=== PATIENT | male | born 1955 | race African-American/Black ===

== ENCOUNTER 2019-03-26 19:59 | Emergency (ER) | payer OTHER ==
[~2019-03-26] VITALS: Ht 170.2 cm; Wt 81.6 kg
[2019-03-26] MEDS ORDERED: Ketorolac 30mg Inj IM ONE (20:45)
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
[2019-03-26] MEDS ORDERED: ROBAXIN-500MG ORAL (20:56)
[2019-03-26] MEDS ORDERED: IBU800 MG PO (20:56)
[2019-03-26 21:02] VITALS: BP 119/80
--- NOTE | 2019-03-27 10:50 | Diagnostic Imaging Report ---
Indication: Knee pain status post trauma Technique: XRAY Knee 3v R Comparison: None FINDINGS/IMPRESSION: Bone mineralization within normal limits. No definite/displaced acute fractures identified. There is moderate osteoarthritis with lateral compartment joint space narrowing with subchondral sclerosis and marginal osteophytes. Some osteophytes are also noted at the patellofemoral compartment. There is a trace to small suprapatellar knee joint effusion. No radiopaque foreign body.
== END 2019-03-26 21:02 | disposition home or self-care (01) ==
LOC: EMR 20:30
DX: S80.01XA Contusion of right knee, initial encounter (principal); V09.9XXA Pedestrian injured in unspecified transport accident, initial encounter; Y92.410 Unspecified street and highway as the place of occurrence of the external cause
CPT/HCPCS: 29505; 73562; 96372; 99283; J1885